=== PATIENT | male | born 1995 | race Caucasian/White ===

== ENCOUNTER 2025-02-03 08:34 | Emergency (ER) | payer SELFPAY ==
[~2025-02-03] VITALS: Ht 175.3 cm; Wt 90.0 kg
[2025-02-03 08:38] VITALS: BP 139/83; PULSE 83; RESP 16; TEMP 36.4; O2SAT 100
== END 2025-02-03 09:23 | disposition home or self-care (01) ==
LOC: ER 08:34
DX: F10.129 Alcohol abuse with intoxication, unspecified (principal); Z79.899 Other long term (current) drug therapy; Y90.9 Presence of alcohol in blood, level not specified
CPT/HCPCS: 82962; 99283